=== PATIENT | female | born 1995 | race Caucasian/White ===

== ENCOUNTER 2016-08-11 13:14 | Emergency (ER) | payer BC ==
[2016-08-11 13:29] VITALS: BP 127/66
--- NOTE | 2016-08-11 13:46 | UC ---
Respiratory Complaint HPI - HPI Summary HPI Summary: states for the past week she has had a headache, feels tired, and her stomach is upset. [ End ] - History of Current Complaint Chief Complaint: UCGeneralIllness Stated Complaint: FEVER, NAUSEA, HEADACHE Time Seen by Provider: 08/11/16 13:43 Hx Obtained From: Patient Hx Last Menstrual Period: 08/02/16 Onset/Duration: Gradual Onset Severity Initially: Mild Severity Currently: Mild Character: Cough: Nonproductive Associated Signs And Symptoms: Positive: Nasal Congestion, Sinus Discomfort - Risk Factors Pulmonary Embolism Risk Factors: Negative Cardiac Risk Factors: Negative Pseudomonas Risk Factors: Negative Tuberculosis Risk Factors: Negative - Allergies/Home Medications Allergies/Adverse Reactions: Allergies Allergy/AdvReac Type Severity Reaction Status Date / Time No Known Allergies Allergy Verified 08/11/16 13:30 PMH/Surg Hx/FS Hx/Imm Hx Previously Healthy: Yes Endocrine History Of: Denies: Diabetes Cardiovascular History Of: Denies: Hypertension, Pacemaker/ICD Respiratory History Of: Denies: Asthma GI/ History Of: Denies: Ulcer Psychological History Of: Denies: Anxiety Cancer History Of: Denies: Lung Cancer - Surgical History Surgical History: Yes Surgery Procedure, Year, and Place: UMBILICAL HERNIA REPAIR, ACL REPAIR RT KNEE (x3 surgeries right knee), Left knee - Family History Known Family History: Positive: None - Social History Occupation: Employed Full-time Lives: With Family Alcohol Use: Rare Substance Use Type: None Smoking Status (MU): Never Smoked Tobacco Review of Systems Constitutional: Fatigue Skin: Negative Eyes: Negative ENT: Negative Respiratory: Negative Cardiovascular: Negative Gastrointestinal: Negative Genitourinary: Negative Motor: Negative Neurovascular: Negative Musculoskeletal: Negative Neurological: Negative, Headache Psychological: Negative All Other Systems Reviewed And Are Negative: Yes Physical Exam Triage Information Reviewed: Yes Appearance: Well-Appearing, No Pain Distress, Well-Nourished Vital Signs: Initial Vital Signs Temp 98.1 F 08/11/16 13:26 Pulse 69 08/11/16 13:26 Resp 14 08/11/16 13:26 BP 127/66 08/11/16 13:26 Pulse Ox 100 08/11/16 13:26 Vital Signs Reviewed: Yes Eye Exam: Normal ENT Exam: Normal Dental Exam: Normal Neck exam: Normal Neck: Positive: 1 Respiratory Exam: Normal Cardiovascular Exam: Normal Abdominal Exam: Normal Musculoskeletal Exam: Normal Neurological Exam: Normal Psychological Exam: Normal Skin Exam: Normal UC Diagnostic Evaluation - Laboratory O2 Sat by Pulse Oximetry: 100 Respiratory Course/Dx - Course Course Of Treatment: Vague Sx. No red flags. If Sx persist she will go to PCP for labs - Differential Dx/Diagnosis Differential Diagnosis/HQI/PQRI: Bronchitis, Laryngitis, Sinusitis Provider Diagnoses: Viral gastroenteritis Discharge - Discharge Plan Condition: Good Disposition: HOME Prescriptions: Ondansetron [Zofran Odt] 4 mg PO Q6HR PRN #20 tab PRN Reason: Nausea Patient Education Materials: Gastroenteritis (ED) Referrals: Sarita Olivas [Primary Care Provider] - 3 Days
== END 2016-08-11 14:11 | disposition home or self-care (01) ==
LOC: UCCORT 13:14
DX: A08.4 Viral intestinal infection, unspecified (principal)
CPT/HCPCS: 99202; G0463

== ENCOUNTER 2017-08-23 09:03 | Emergency (ER) | payer BC ==
[2017-08-23 09:57] VITALS: BP 131/69
[2017-08-23] MEDS ORDERED: ceFAZolin 500 MG VIAL(*) 500 MG VIAL IM ONE (10:16)
[2017-08-23] MEDS ORDERED: Tetan/Diph/Pertus SYR(Tdap)* 0.5 ML SYR(BOOSTRIX) use SYR IM ONE (10:17)
--- NOTE | 2017-08-23 10:44 | UC ---
UC General HPI - HPI Summary HPI Summary: 22 yo female presents for evaluation and treatment of R eye discharge, redness, and R ear redness. Last night + green d/c from R eye, this am noted redness of conj and sclera. Not painful, a little itchy. Does not wear contact lenses. 6 days ago had right tragus pierced. This am noted some drainage and redness around the piercing site. No other c/o's. No sob / cp. No fever / chills. No vis / aud changes (except blurry from drainage). Last tet - thinks needs booster - History of Current Complaint Chief Complaint: UCEar Stated Complaint: RT EYE/EAR COMPLAINT Time Seen by Provider: 08/23/17 09:46 Hx Obtained From: Patient Hx Last Menstrual Period: 07/01/17 Pain Intensity: 8 - Allergy/Home Medications Allergies/Adverse Reactions: Allergies Allergy/AdvReac Type Severity Reaction Status Date / Time No Known Allergies Allergy Verified 08/23/17 09:49 PMH/Surg Hx/FS Hx/Imm Hx Previously Healthy: Yes - Surgical History Surgical History: Yes Surgery Procedure, Year, and Place: UMBILICAL HERNIA REPAIR, ACL REPAIR RT KNEE (x3 surgeries right knee), Left knee, C-sec - Family History Known Family History: Positive: None, Other - no dm - Social History Alcohol Use: Rare Substance Use Type: None Smoking Status (MU): Never Smoked Tobacco Review of Systems Constitutional: Negative Skin: Other - see hpi Eyes: Other - see hpi Respiratory: Negative Cardiovascular: Negative Gastrointestinal: Negative Genitourinary: Negative Motor: Negative Neurovascular: Negative Musculoskeletal: Negative Neurological: Negative Psychological: Negative Is Patient Immunocompromised?: No All Other Systems Reviewed And Are Negative: Yes Physical Exam Triage Information Reviewed: Yes Appearance: Well-Nourished - sitting up, conversing easily and appropriately. nontoxic appearance, NAD Vital Signs: Initial Vital Signs Temp 97.8 F 08/23/17 09:50 Pulse 99 08/23/17 09:50 Resp 16 08/23/17 09:50 BP 131/69 08/23/17 09:50 Pulse Ox 100 08/23/17 09:50 Eye Exam: Other - PERRLA EOMI L sclera white, conj pink R sclera injected, paulina injected, mild yellowish drainage noted. No issues noted under R eyelid ENT Exam: Other - see "skin" ENT: Positive: Pharynx normal - Bilat EAC ok Bilat TM ok, Other Neck exam: Normal Neck: Positive: Supple, Nontender, No Lymphadenopathy Respiratory Exam: Normal Respiratory: Positive: Chest non-tender, Lungs clear, Normal breath sounds, No respiratory distress, No accessory muscle use Cardiovascular Exam: Normal Cardiovascular: Positive: RRR, Pulses Normal, Brisk Capillary Refill Abdominal Exam: Normal Abdomen Description: Positive: Nontender Musculoskeletal Exam: Normal Neurological Exam: Normal - nonfocal CN's intact as tested Psychological Exam: Normal - conversing easily and appropriately Skin Exam: Other - R ear - tragus loop piercing. Earring is in place. Small amount of whitish purulence noted at earring hole. No dilma fluctuance. The area around the piercing, extending to the margin of ear is red, warm to touch. No post ear redness. No meningismus. No lymphadenopathy appreciated. Course/Dx - Course Course Of Treatment: Ms. Peña really would like to keep her earring in place. This is understandable. However, if her symptoms do not rapidly improve, she is aware that she may need to remove it. Ancef 500mg IM here, rx doxycycline 10 days. Rx vigamox. Boostrix booster. Reviewed wound care. Questions as posed answered to the best of my ability. - Differential Dx - Multi-Symptom Provider Diagnoses: R conjuncitivitis. R ear cellulitis and wound infection Discharge - Discharge Plan Condition: Stable Disposition: HOME Prescriptions: DOXYcycline CAP(*) [DOXYcycline 100MG CAP(*)] 100 mg PO BID #20 cap Moxifloxacin 0.5% OPHTH(NF) [Vigamox 0.5% OPHTH(NF)] 0.5 % OP Q6H #1 bottle Patient Education Materials: Cefazolin (By injection), Diphtheria/Acellular Pertussis/Tetanus Booster Vaccine (By injection), Wound Infection (ED), Cellulitis (ED), Conjunctivitis (ED) Forms: *Work Release Referrals: Nellie Weldon NP [Primary Care Provider] - Additional Instructions: Avoid astringents (ex do not use hydrogen peroxide, rubbing alcohol, etc) Routine hygiene via mild white soapy water, do not scrub. You received an injection of Ancef (cefazolin) 500mg IM today. If your condition has not improved in 24 hours, then you should remove the earring. Please seek medical attention at the Emergency Department for worse or new symptoms.
== END 2017-08-23 11:05 | disposition home or self-care (01) ==
LOC: UCCORT 09:03
DX: H10.9 Unspecified conjunctivitis (principal); T81.4XXA Infection following a procedure, initial encounter; H60.11 Cellulitis of right external ear
CPT/HCPCS: 90471; 90715; 96372; 99212; G0463; J0690

== ENCOUNTER 2018-08-24 09:33 | Emergency (ER) | payer BC ==
[2018-08-24 09:57] VITALS: BP 130/62
--- NOTE | 2018-08-24 10:26 | UC ---
Complaint Female HPI - HPI Summary HPI Summary: 23-year-old female presents with 2 day history of dysuria, frequency, urgency, and cloudy urine. Denies fever, chills, abdominal pain, back or flank pain, nausea, vomiting, vaginal discharge, dyspareunia, or abnormal bleeding. - History Of Current Complaint Chief Complaint: UCGU Stated Complaint: URINARY COMPLAINT Hx Obtained From: Patient Hx Last Menstrual Period: unknown, iud Pain Intensity: 0 - Allergies/Home Medications Allergies/Adverse Reactions: Allergies Allergy/AdvReac Type Severity Reaction Status Date / Time No Known Allergies Allergy Verified 08/24/18 09:57 PMH/Surg Hx/FS Hx/Imm Hx Previously Healthy: Yes - Denies significant PMH - Surgical History Surgical History: Yes Surgery Procedure, Year, and Place: UMBILICAL HERNIA REPAIR, ACL REPAIR RT KNEE (x3 surgeries right knee), Left knee, C-sec - Family History Known Family History: Positive: Non-Contributory - Social History Occupation: Employed Full-time Lives: With Family Alcohol Use: Rare Substance Use Type: None Smoking Status (MU): Never Smoked Tobacco Review of Systems All Other Systems Reviewed And Are Negative: Yes Constitutional: Negative: Fever, Chills Respiratory: Positive: Negative Cardiovascular: Positive: Negative Gastrointestinal: Positive: Negative Genitourinary: Positive: Dysuria, Frequency, Urgency. Negative: Hematuria, Vaginal/Penile Discharge, Ulceration/Lesion, Abnormal Bleeding Musculoskeletal: Positive: Negative Neurological: Positive: Negative Is Patient Immunocompromised?: No Physical Exam - Summary Physical Exam Summary: GENERAL APPEARANCE: Well developed, well nourished, alert and cooperative, and appears to be in no acute distress. NECK: Neck supple, non-tender without lymphadenopathy. CARDIAC: Normal S1 and S2. No S3, S4 or murmurs. Rhythm is regular. There is no peripheral edema, cyanosis or pallor. Extremities are warm and well perfused. Capillary refill is less than 2 seconds. Peripheral pulses intact. LUNGS: Clear to auscultation without rales, rhonchi, wheezing or diminished breath sounds. ABDOMEN: Positive bowel sounds. Soft, nondistended, nontender. No guarding or rebound. No masses or hepatosplenomegally. No CVA tenderness. MUSKULOSKELETAL: ROM intact to all extremities. No joint erythema or tenderness. Normal muscular development. Normal gait. SKIN: Skin normal color, texture and turgor with no lesions or eruptions. Triage Information Reviewed: Yes Vital Signs: Initial Vital Signs Temp 97.6 F 08/24/18 09:55 Pulse 66 08/24/18 09:55 Resp 16 08/24/18 09:55 BP 130/62 08/24/18 09:55 Pulse Ox 100 08/24/18 09:55 Vital Signs Reviewed: Yes Complaint Female Dx - Course Course Of Treatment: 23-year-old female presents with 2 day history of dysuria, frequency, urgency, and cloudy urine. Denies fever, chills, abdominal pain, back or flank pain, nausea, vomiting, vaginal discharge, dyspareunia, or abnormal bleeding. Afebrile. Vital signs stable. Exam reveals a young adult female in no acute distress with an overall unremarkable exam. [id number] urinalysis shows 2+ red blood cells, trace protein, and 2+ leukocyte esterase. Urine negative. Urine culture pending. Will treat for UTI with Bactrim DS 1 tab BID x 5 days and pyridium 1 tab TID x 2 days. She is to follow up with PCP in 5 days if no improvement in symptoms. Anticipatory guidance and warning symptoms reviewed with patient. Verbalizes understanding and agrees with POC. - Differential Dx/Diagnosis Differential Diagnosis/HQI/PQRI: , Renal Colic, Sexually Transmitted Disease, Urinary Tract Infection Provider Diagnosis: UTI (urinary tract infection) Discharge - Sign-Out/Discharge Documenting (check all that apply): Patient Departure All imaging exams completed and their final reports reviewed: No Studies - Discharge Plan Condition: Stable Disposition: HOME Prescriptions: Phenazopyridine TAB* [Pyridium 100 mg TAB*] 100 mg PO TID #6 tab Sulfamethox/Trimethoprim DS* [Bactrim DS 800/160 TAB*] 1 tab PO BID #10 tab Patient Education Materials: Urinary Tract Infection in Women (ED) Referrals: Sarita Olivas [Primary Care Provider] - 5 Days (If no improvement in symptoms.) Additional Instructions: Your urine test in the clinic today is suggestive of a urinary tract infection. We will start you on an antibiotic to treat for the infection. We will also send a urine culture today to see what bacteria grow out and make sure the antibiotic you were prescribed is appropriate to treat the infection. It will take 48-72 hours to get these results. We will contact you if there is any change in your treatment plan. Start Bactrim DS 1 tab twice a day for 5 days. Take Pyridium 1 tablet every 8 hours for next 2 days to help with the discomfort. This medication will turn your urine an orange color. Drink plenty of fluids. To help prevent urinary tract infections: 1) Be sure to wipe from front to back. 2) Urinate immediately after any sexual intercourse. 3) Avoid taking bubble baths. Follow up with your primary care provider in 5 days if symptoms persist. Seek immediate medical attention in the emergency room if you develop fever greater than 100.5 F, have severe abdominal pain, persistent vomiting, or any worsening of symptoms. - Billing Disposition and Condition Condition: STABLE Disposition: Home - Attestation Statements Provider Attestation: Per institutional requirements, I have reviewed the chart, however, I was not consulted specifically or made aware of this patient by the midlevel provider. I did not personally evaluate, interact with , or disposition this patient
--- NOTE | 2018-08-26 07:19 | UC ---
- Progress Note Progress Note: urine culture neg growth final no change 08/26/18 [email or web address] Course/Dx - Diagnoses Provider Diagnoses: UTI (urinary tract infection) Discharge - Sign-Out/Discharge Documenting (check all that apply): Post-Discharge Follow Up All imaging exams completed and their final reports reviewed: No Studies - Discharge Plan Condition: Stable Disposition: HOME Prescriptions: Phenazopyridine TAB* [Pyridium 100 mg TAB*] 100 mg PO TID #6 tab Sulfamethox/Trimethoprim DS* [Bactrim DS 800/160 TAB*] 1 tab PO BID #10 tab Patient Education Materials: Urinary Tract Infection in Women (ED) Referrals: Sarita Olivas [Primary Care Provider] - 5 Days (If no improvement in symptoms.) Additional Instructions: Your urine test in the clinic today is suggestive of a urinary tract infection. We will start you on an antibiotic to treat for the infection. We will also send a urine culture today to see what bacteria grow out and make sure the antibiotic you were prescribed is appropriate to treat the infection. It will take 48-72 hours to get these results. We will contact you if there is any change in your treatment plan. Start Bactrim DS 1 tab twice a day for 5 days. Take Pyridium 1 tablet every 8 hours for next 2 days to help with the discomfort. This medication will turn your urine an orange color. Drink plenty of fluids. To help prevent urinary tract infections: 1) Be sure to wipe from front to back. 2) Urinate immediately after any sexual intercourse. 3) Avoid taking bubble baths. Follow up with your primary care provider in 5 days if symptoms persist. Seek immediate medical attention in the emergency room if you develop fever greater than 100.5 F, have severe abdominal pain, persistent vomiting, or any worsening of symptoms. - Billing Disposition and Condition Condition: STABLE Disposition: Home
== END 2018-08-24 10:31 | disposition home or self-care (01) ==
LOC: UCCORT 09:33
DX: N39.0 Urinary tract infection, site not specified (principal)
CPT/HCPCS: 81003; 84702; 87086; 99212; G0463